=== PATIENT | female | born 1965 | race African-American/Black ===

== ENCOUNTER 2019-01-30 05:08 | Emergency (ER) | payer MEDICAID ==
[~2019-01-30] VITALS: Ht 175.3 cm; Wt 109.0 kg
[2019-01-30] MEDS ORDERED: KETOROLAC 30MG/ML VIAL IM ONE (06:45)
[2019-01-30 08:27] VITALS: BP 145/95
== END 2019-01-30 08:27 | disposition home or self-care (01) ==
LOC: ER 05:08
DX: M25.512 Pain in left shoulder (principal); M25.511 Pain in right shoulder; M54.9 Dorsalgia, unspecified; I10 Essential (primary) hypertension
CPT/HCPCS: 72100; 73030; 96372; 99283; J1885; Z7610

== ENCOUNTER 2019-02-21 04:18 | Emergency (ER) | payer MEDICAID ==
[~2019-02-21] VITALS: Ht 175.3 cm; Wt 108.0 kg
[2019-02-21] MEDS ORDERED: ACETAMINOPHEN WITH CODEINE 300/30MG TABLET PO ONE (06:30)
[2019-02-21 06:34] LABS: EOSINOPHILS % 2.2 % (0.0-5.0); HEMATOCRIT. 40.2 % (36.0-48.0); HEMOGLOBIN. 13.2 g/dL (12.0-16.0); LYMPHOCYTES % 25.5 % (20.0-50.0); MEAN CORPUSCULAR HEMOGLOBIN 27.5 pg (28.0-32.0); MEAN CORPUSCULAR VOLUME 83.9 fL (81.0-99.0); MEAN PLATELET VOLUME 8.5 fl (7.4-10.4); MONOCYTES % 14.1 % (2.0-8.0); NEUTROPHILS % 57.2 % (40.0-76.0); PLATELET 221 x1000/uL (130-400); RED BLOOD CELL COUNT 4.79 mill/uL (4.2-5.4); RED CELL DISTRIBUTION WIDTH 15.6 % (11.6-14.6)
[2019-02-21 06:40] LABS: CHLORIDE 109 mEq/L (98-107)
[2019-02-21] MEDS: TETRACAINE/BENZOCAINE/BUTAMBEN 20 GM SPRAY MM NR ×2 (06:55→07:01)
[2019-02-21 08:23] VITALS: BP 145/82
== END 2019-02-21 08:27 | disposition home or self-care (01) ==
LOC: ER 04:18
DX: R05 Cough (principal); R07.89 Other chest pain; J02.9 Acute pharyngitis, unspecified; I10 Essential (primary) hypertension; Z98.890 Other specified postprocedural states
CPT/HCPCS: 36415; 71045; 93005; 99284